=== PATIENT | female | born 1975 | race Two or more races ===

== ENCOUNTER 2017-07-24 08:19 | Inpatient (IN) | payer OTHER ==
[2017-07-24 09:40] VITALS: BMI 35.6
--- NOTE | 2017-07-24 09:50 | HP ---
CIWA Score - CIWA Score Nausea/Vomitin-Int. Nausea w/Dry Heave Muscle Tremors: 4-Moderate,w/Arms Extend Anxiety: 4-Mod. Anxious/Guarded Agitation: 1-Slight > Activity Paroxysmal Sweats: 1-Minimal Palms Moist Orientation: 0-Oriented Tacttile Disturbances: 1-Very Mild Itch/Numbness Auditory Disturbances: 2-Mild Harshness/Frighten Visual Disturbances: 2-Mild Sensitivity Headache: 3-Moderate CIWA-Ar Total Score: 22 Admission ROS S - HPI Chief Complaint: I need a change, I don't want to keep using Allergies/Adverse Reactions: Allergies Allergy/AdvReac Type Severity Reaction Status Date / Time doxycycline Allergy Severe Hives Verified 07/24/17 09:30 History of Present Illness: 41 yo woman here for detox from alcohol - also using cocaine, first time ever in a detox. No seizures. Also noted to be deaf in left ear, arthritis, back pain. Has abdominal wound - states it was an abscess that opened and now with draining, slowly healing wound for about a week or two. Exam Limitations: Clinical Condition - Ebola screening Have you traveled outside of the country in the last 21 days: No Have you had contact with anyone from an Ebola affected area: No Have you been sick,other than usual withdrawal symptoms: No Do you have a fever: No - Review of Systems Constitutional: Chills, Loss of Appetite, Malaise, Changes in sleep, Weakness EENT: reports: Other (deaf left ear) Respiratory: reports: Cough Cardiac: reports: No Symptoms Reported GI: reports: Nausea, Poor Appetite, Vomiting, Abdominal cramping Musculoskeletal: reports: Back Pain, Muscle Pain, Other (hand pain - carpal tunnel) Integumentary: reports: No Symptoms Reported Neuro: reports: Headache, Numbness Endocrine: reports: No Symptoms Reported Hematology: reports: No Symptoms Reported Psychiatric: reports: Judgement Intact, Mood/Affect Appropiate, Orientated x3, Anxious Other Systems: Reviewed and Negative Patient History - Patient Medical History Hx Asthma: No Hx Chronic Obstructive Pulmonary Disease (COPD): No Hx Cancer: No Hx Cardiac Disorders: No Hx Congestive Heart Failure: No Hx Hypertension: No Hx Hypercholesterolemia: No Hx Pacemaker: No HX Cerebrovascular Accident: No Hx Seizures: No Hx Dementia: No Hx Diabetes: No Hx Gastrointestinal Disorders: No Hx Liver Disease: No Hx Genitourinary Disorders: No Hx Sexually Transmitted Disorders: No Hx Renal Disease (ESRD): No Hx Thyroid Disease: No Hx Human Immunodeficiency Virus (HIV): No Hx Hepatitis C: No Hx Depression: Yes (never hospitalized) Hx Suicide Attempt: No Hx Bipolar Disorder: No Hx Schizophrenia: No Other Medical History: back pain, deaf left ear, carpal tunnel - Patient Surgical History Past Surgical History: No Hx Neurologic Surgery: No Hx Cataract Extraction: No Hx Cardiac Surgery: No Hx Lung Surgery: No Hx Breast Surgery: No Hx Breast Biopsy: No Hx Abdominal Surgery: No Hx Appendectomy: No Hx Cholecystectomy: No Hx Genitourinary Surgery: No Hx Section: No Hx Orthopedic Surgery: No Other Surgical History: D&C- 02/2017 Anesthesia Reaction: No - PPD History Previous Implant?: Yes Documented Results: Negative w/o proof PPD to be Administered?: Yes - Reproductive History Patient is a Female of Child Bearing Age (11 -55 yrs old): No - Smoking Cessation Smoking history: Current every day smoker Have you smoked in the past 12 months: Yes Aproximately how many cigarettes per day: 40 Hx Chewing Tobacco Use: No Initiated information on smoking cessation: Yes 'Breaking Loose' booklet given: 07/24/17 (give on floor) - Substances Abused Alcohol Route: Oral Frequency: Daily Amount used: LIQUOR- 6 PINTS, BEER- 3 SIX PACK Age of first use: 17 Date of Last Use: 07/23/17 Crack Route: Smoking Frequency: Daily Amount used: 40 BAGS Age of first use: 37 Date of Last Use: 07/23/17 Family Disease History - Family Disease History Family Disease History: Diabetes: Son (one - diabetes), Respiratory: Mother ( - drugs ' thrown out window'), Other: Father (no contact, etoh/drugs, incarcerated), Mother, Brother (one - arthritis - pot smoker), Sister (lupus - thyroid - etoh/pot), Son, Daughter (three - healthy) Admission Physical Exam BHS - Vital Signs Vital Signs: Vital Signs - 24 hr 07/24/17 09:37 Temperature 96.4 F L Pulse Rate 64 Respiratory 18 Rate Blood Pressure 128/62 - Physical General Appearance: Yes: Nourished, Appropriately Dressed, Moderate Distress, Anxious HEENTM: Yes: EOMI, Normal ENT Inspection, Normocephalic, Normal Voice, Pharynx Normal, Other (deaf left ear) Respiratory: Yes: Normal Breath Sounds, No Respiratory Distress Neck: Yes: No masses,lesions,Nodules, Supple Breast: Yes: Breast Exam Deferred Cardiology: Yes: Regular Rhythm, Bradycardia Abdominal: Yes: Flat, Soft, Other (right lower quadrent quarter size open wound with creamy greenish exudate - stage II) Genitourinary: Yes: Frequency Back: Yes: Decreased Range of Motion, Muscle Spasm Musculoskeletal: Yes: full range of Motion, Gait Steady Extremities: Yes: Normal Inspection, Normal Range of Motion, Non-Tender, Pedal Edema (mild ankle edema (states due to 'running around' and no rest) Neurological: Yes: Fully Oriented, Alert, Normal Mood/Affect, Normal Response Integumentary: Yes: Normal Color, Warm Lymphatic: Yes: Within Normal Limits - Diagnostic (1) Alcohol dependence with uncomplicated withdrawal Current Visit: Yes Status: Acute (2) Cocaine dependence Current Visit: Yes Status: Acute Qualifiers: Substance use status: uncomplicated Qualified Code(s): F14.20 - Cocaine dependence, uncomplicated (3) Chronic low back pain with right-sided sciatica Current Visit: Yes Status: Acute Qualifiers: Back pain laterality: bilateral Qualified Code(s): M54.41 - Lumbago with sciatica, right side; G89.29 - Other chronic pain; G89.29 - Other chronic pain (4) Deafness in left ear Current Visit: Yes Status: Acute Comment: since age [age] (5) Carpal tunnel syndrome of right wrist Current Visit: Yes Status: Acute (6) Nicotine dependence Current Visit: Yes Status: Acute Qualifiers: Nicotine product type: cigarettes Substance use status: uncomplicated Qualified Code(s): F17.210 - Nicotine dependence, cigarettes, uncomplicated Cleared for Admission S - Detox or Rehab [facility] Level of Care: Medically Managed Detox Regimen/Protocol: Librium [facility] Breath Alcohol Content Breath Alcohol Content: 0 Urine Pregancy Test - Result Urine Test Results: Negative- NO Line Present Urine Drug Screen - Results Drug Screen Negative: No Urine Drug Screen Results: CHARLINE-Cocaine
[2017-07-24] MEDS ORDERED: guaiFENesin/D-METHORPHAN HB 10 ML UNIT-DOSE CUPS PO PRN (10:11)
[2017-07-24] MEDS ORDERED: MENTHOL/PHENOL 1 EACH UD MM PRN (10:11)
[2017-07-24] MEDS ORDERED: P-EPHED 60MG/TRIPROLIDI 2.5MG TABLET PO PRN (10:11)
[2017-07-24] MEDS ORDERED: MAGNESIUM CITRATE 300 ML BOTTLE PO PRN (10:11)
[2017-07-24] MEDS ORDERED: IBUPROFEN 400 MG TABLET (FP) PO PRN (10:11)
[2017-07-24] MEDS ORDERED: MAGNESIUM HYDROX 2400MG/30ML ORAL SUSPENSION 30 ML CUP PO PRN (10:11)
[2017-07-24] MEDS ORDERED: ACETAMINOPHEN 325 MG TABLET (FP) PO PRN (10:11)
[2017-07-24] MEDS ORDERED: NICOTINE POLACRILEX 4 MG GUM BUC PRN (10:11)
[2017-07-24] MEDS ORDERED: chlordiazePOXIDE HCL 25 MG CAPSULE PO PRN (10:11)
[2017-07-24] MEDS ORDERED: ZINC OXIDE/PANTHENOL/VITAMIN E 56 GM TUBE TP SCH (10:30)
[2017-07-24] MEDS ORDERED: chlordiazePOXIDE HCL 25 MG CAPSULE PO ONE (11:00)
[2017-07-24] MEDS: METHOCARBAMOL 500 MG TABLET PO SCH ×2 (12:36→22:25)
[2017-07-24] MEDS: ZINC OXIDE 20% TOPICAL OINTMENT 30 GM TUBE TP SCH (14:00)
[2017-07-24] MEDS: chlordiazePOXIDE HCL 25 MG CAPSULE PO SCH ×2 (17:05→22:25)
[2017-07-24 19:48] LABS: URINE APPEARANCE CLOUDY; URINE BILIRUBIN NEGATIVE (NEGATIVE); URINE BLOOD NEGATIVE (NEGATIVE); URINE COLOR YELLOW; URINE GLUCOSE (UA) NEGATIVE (NEGATIVE); URINE KETONE NEGATIVE (NEGATIVE); URINE NITRITE NEGATIVE (NEGATIVE); URINE PROTEIN NEGATIVE (NEGATIVE); URINE UROBILINOGEN NEGATIVE mg/dL (0.2-1.0)
[2017-07-24 21:38] LABS: URINE LEUK ESTERASE 1+ (NEGATIVE)
[2017-07-24 22:20] LABS: URINE BACTERIA MODERATE /hpf (NEGATIVE)
[2017-07-24] MEDS: THIAMINE HCL 100 MG TABLET (FP) PO SCH (22:25)
[2017-07-24] MEDS: hydrOXYzine PAMOATE 50 MG CAPSULE (FP) PO PRN (22:26)
[2017-07-25] MEDS: chlordiazePOXIDE HCL 25 MG CAPSULE PO SCH ×4 (06:02→22:11)
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
[2017-07-25] MEDS: METHOCARBAMOL 500 MG TABLET PO SCH ×2 (10:23→22:12)
[2017-07-25] MEDS: PRENATAL VITAMINS W/ FOLIC ACID TABLET (FP) PO SCH (10:23)
[2017-07-25 10:31] LABS: MCH 31.2 pg (25.7-33.7); MEAN CELL VOLUME 94.5 fl (80-96); MEAN PLT VOLUME 7.8 fl (7.5-11.1); PLATELET COUNT 337 K/MM3 (134-434); RDW 13.9 % (11.6-15.6); WHITE BLOOD COUNT 8.2 K/mm3 (4.0-10.0)
[2017-07-25] MEDS: IBUPROFEN 400 MG TABLET (FP) PO PRN (10:38)
[2017-07-25] MEDS: GABAPENTIN 100 MG CAPSULE (FP) PO SCH ×2 (10:38→22:11)
[2017-07-25 10:41] LABS: ANION GAP 9 (8-16); CO2 25 mmol/L (21-32); CREATININE 0.9 mg/dL (0.55-1.02); GLUCOSE,RANDOM 138 mg/dL (74-106); SGOT/AST 14 U/L (15-37); SGPT/ALT 25 U/L (12-78)
[2017-07-25 10:42] LABS: ALK PHOS 67 U/L (45-117); BILIRUBIN,TOTAL 0.5 mg/dL (0.2-1.0)
[2017-07-25 11:00] LABS: HIV 1 & 2 AB NEGATIVE; HIV 1 AGp24 NEGATIVE
--- NOTE | 2017-07-25 11:00 | PN ---
S CIWA - CIWA Score Nausea/Vomitin-Mild Nausea/No Vomiting Muscle Tremors: 4-Moderate,w/Arms Extend Anxiety: 4-Mod. Anxious/Guarded Agitation: 3 Paroxysmal Sweats: 3 Orientation: 0-Oriented Tacttile Disturbances: 0-None Auditory Disturbances: 0-None Visual Disturbances: 0-None Headache: 0-None Present CIWA-Ar Total Score: 15 BHS Progress Note (SOAP) Subjective: Anxiety,tremors,sweating,interrupted sleep,restless Objective: 07/25/17 10:56 Vital Signs - 8 hr 07/25/17 07/25/17 07/25/17 03:30 06:00 09:42 Temperature 98.1 F 97.2 F L Pulse Rate 74 78 Respiratory 18 18 18 Rate Blood Pressure 108/70 94/57 Laboratory Tests 07/24/17 07/25/17 07/25/17 16:07 07:15 07:15 WBC 8.2 RBC 3.95 Hgb 12.3 Hct 37.3 MCV 94.5 MCH 31.2 MCHC 33.0 RDW 13.9 Plt Count 337 MPV 7.8 Sodium 141 Potassium 4.1 Chloride 107 Carbon Dioxide 25 Anion Gap 9 BUN 11 Creatinine 0.9 Creat Clearance w eGFR > 60 Random Glucose 138 H Calcium 8.0 L Total Bilirubin 0.5 AST 14 L ALT 25 Alkaline Phosphatase 67 Total Protein 6.0 L Albumin 3.0 L Urine Color Yellow Urine Appearance Cloudy Urine pH 6.0 Ur Specific [place] 1.019 Urine Protein Negative Urine Glucose (UA) Negative Urine Ketones Negative Urine Blood Negative Urine Nitrite Negative Urine Bilirubin Negative Urine Urobilinogen Negative Ur Leukocyte Esterase 1+ H Urine RBC 2-5 Urine WBC 5-10 Ur Epithelial Cells Few Urine Bacteria Moderate labs noted Assessment: 07/25/17 10:56 Withdrawal sx. Plan: Continue Detox
[2017-07-25] MEDS: ZINC OXIDE 20% TOPICAL OINTMENT 30 GM TUBE TP SCH (12:41)
--- NOTE | 2017-07-25 13:04 | PN ---
BHS Progress Note Note: Pt. has a draining abdominal abscess, she also reports hx. of Lupus which causes joint pains. P : Augmentin 875mg bid
[2017-07-25] MEDS ORDERED: AMOX TR/POT CLAV 875MG/125MG TABLETS (FP) PO ONE (13:15)
[2017-07-25] MEDS: AMOX TR/POT CLAV 875MG/125MG TABLETS (FP) PO SCH (17:04)
[2017-07-25] MEDS ORDERED: TRIMETHOBENZAMIDE HCL 200MG/2ML INJ IM ONE (21:35)
[2017-07-25] MEDS: ZOLPIDEM TARTRATE 10 MG TABLET (PARK CARE ONLY) PO PRN (22:11)
[2017-07-25] MEDS: THIAMINE HCL 100 MG TABLET (FP) PO SCH (22:11)
[2017-07-26] MEDS: hydrOXYzine PAMOATE 50 MG CAPSULE (FP) PO PRN ×2 (03:15→14:38)
[2017-07-26] MEDS: chlordiazePOXIDE HCL 25 MG CAPSULE PO SCH ×2 (05:25→09:59)
--- NOTE | 2017-07-26 09:41 | EKG ---
Test Reason : Blood Pressure : / mmHG Vent. Rate : 050 BPM Atrial Rate : 050 BPM P-R Int : 144 ms QRS Dur : 100 ms QT Int : 474 ms P-R-T Axes : 068 -10 027 degrees QTc Int : 432 ms SINUS BRADYCARDIA OTHERWISE NORMAL ECG NO PREVIOUS ECGS AVAILABLE Confirmed by LEVI MENDES MD ([id number]) on 07/26/2017 9:41:03 AM Referred By: Confirmed By:LEVI MENDES MD
[2017-07-26] MEDS: GABAPENTIN 100 MG CAPSULE (FP) PO SCH ×2 (09:57→22:20)
[2017-07-26] MEDS: AMOX TR/POT CLAV 875MG/125MG TABLETS (FP) PO SCH ×2 (09:57→16:43)
[2017-07-26] MEDS: METHOCARBAMOL 500 MG TABLET PO SCH ×2 (09:57→22:21)
[2017-07-26] MEDS: PRENATAL VITAMINS W/ FOLIC ACID TABLET (FP) PO SCH (09:58)
--- NOTE | 2017-07-26 10:51 | PN ---
[facility] CIWA - CIWA Score Nausea/Vomitin-No Nausea/No Vomiting Muscle Tremors: 4-Moderate,w/Arms Extend Anxiety: 3 Agitation: 3 Paroxysmal Sweats: 3 Orientation: 0-Oriented Tacttile Disturbances: 0-None Auditory Disturbances: 0-None Visual Disturbances: 0-None Headache: 1-Very Mild CIWA-Ar Total Score: 14 S Progress Note (SOAP) Subjective: sweats shakes interrupted sleep agitation nausea/vomiting diarrhea Objective: 07/26/17 10:49 Vital Signs Temperature 97.5 F L 07/26/17 06:23 Pulse Rate 75 07/26/17 06:23 Respiratory Rate 18 07/26/17 06:23 Blood Pressure 115/68 07/26/17 06:23 O2 Sat by Pulse Oximetry (%) Laboratory Tests 07/24/17 07/25/17 07/25/17 16:07 07:15 07:15 WBC 8.2 RBC 3.95 Hgb 12.3 Hct 37.3 MCV 94.5 MCH 31.2 MCHC 33.0 RDW 13.9 Plt Count 337 MPV 7.8 Sodium Potassium Chloride Carbon Dioxide Anion Gap BUN Creatinine Creat Clearance w eGFR Random Glucose Calcium Total Bilirubin AST ALT Alkaline Phosphatase Total Protein Albumin Urine Color Yellow Urine Appearance Cloudy Urine pH 6.0 Ur Specific [place] 1.019 Urine Protein Negative Urine Glucose (UA) Negative Urine Ketones Negative Urine Blood Negative Urine Nitrite Negative Urine Bilirubin Negative Urine Urobilinogen Negative Ur Leukocyte Esterase 1+ H Urine RBC 2-5 Urine WBC 5-10 Ur Epithelial Cells Few Urine Bacteria Moderate RPR Titer HIV 1&2 Antibody Screen Negative HIV P24 Antigen Negative 07/25/17 07/25/17 07:15 07:15 WBC RBC Hgb Hct MCV MCH MCHC RDW Plt Count MPV Sodium 141 Potassium 4.1 Chloride 107 Carbon Dioxide 25 Anion Gap 9 BUN 11 Creatinine 0.9 Creat Clearance w eGFR > 60 Random Glucose 138 H Calcium 8.0 L Total Bilirubin 0.5 AST 14 L ALT 25 Alkaline Phosphatase 67 Total Protein 6.0 L Albumin 3.0 L Urine Color Urine Appearance Urine pH Ur Specific [place] Urine Protein Urine Glucose (UA) Urine Ketones Urine Blood Urine Nitrite Urine Bilirubin Urine Urobilinogen Ur Leukocyte Esterase Urine RBC Urine WBC Ur Epithelial Cells Urine Bacteria RPR Titer Nonreactive HIV 1&2 Antibody Screen HIV P24 Antigen aaox3 ambulating no acute distress Assessment: 07/26/17 10:50 withdrawal sx Plan: continue detox increase fluids immodium prn tigan po prn
[2017-07-26] MEDS: ZINC OXIDE 20% TOPICAL OINTMENT 30 GM TUBE TP SCH (12:11)
[2017-07-26] MEDS: IBUPROFEN 400 MG TABLET (FP) PO PRN ×2 (14:42→22:45)
[2017-07-26] MEDS: chlordiazePOXIDE 5 MG CAPSULE PO SCH ×2 (16:43→22:21)
[2017-07-26] MEDS: MAG HYDROX/AL HYDROX/SIMETH 30 ML UNIT-DOSE CUP PO PRN (17:13)
[2017-07-26] MEDS: THIAMINE HCL 100 MG TABLET (FP) PO SCH (22:20)
[2017-07-26] MEDS: QUEtiapine FUMARATE 100 MG TABLET (FP) PO SCH (22:21)
[2017-07-26] MEDS: ZOLPIDEM TARTRATE 10 MG TABLET (PARK CARE ONLY) PO PRN (22:21)
[2017-07-26] MEDS: LOPERAMIDE HCL 2 MG CAPSULE PO PRN (22:22)
[2017-07-26] MEDS: TRIMETHOBENZAMIDE HCL 300 MG CAPSULE PO PRN (23:53)
[2017-07-27] MEDS: chlordiazePOXIDE 5 MG CAPSULE PO SCH ×2 (05:26→10:31)
[2017-07-27] MEDS: AMOX TR/POT CLAV 875MG/125MG TABLETS (FP) PO SCH ×2 (09:22→17:30)
[2017-07-27] MEDS: LOPERAMIDE HCL 2 MG CAPSULE PO PRN ×2 (09:22→22:24)
[2017-07-27] MEDS: IBUPROFEN 400 MG TABLET (FP) PO PRN ×2 (09:23→22:22)
--- NOTE | 2017-07-27 09:34 | PN ---
BHS Progress Note (SOAP) Subjective: diarrhea sweats nausea Objective: 07/27/17 09:33 Vital Signs Temperature 97.3 F L 07/27/17 06:37 Pulse Rate 73 07/27/17 06:37 Respiratory Rate 18 07/27/17 06:37 Blood Pressure 101/50 07/27/17 06:37 O2 Sat by Pulse Oximetry (%) aaox3 ambulating no acute distress Assessment: 07/27/17 09:34 mild withdrawal sx Plan: continue detox tigan prn immodium prn d/c in am
[2017-07-27] MEDS: METHOCARBAMOL 500 MG TABLET PO SCH ×2 (10:31→22:28)
[2017-07-27] MEDS: GABAPENTIN 100 MG CAPSULE (FP) PO SCH ×2 (10:31→22:22)
[2017-07-27] MEDS: PRENATAL VITAMINS W/ FOLIC ACID TABLET (FP) PO SCH (10:31)
[2017-07-27] MEDS: MAG HYDROX/AL HYDROX/SIMETH 30 ML UNIT-DOSE CUP PO PRN (11:05)
[2017-07-27] MEDS: TRIMETHOBENZAMIDE HCL 300 MG CAPSULE PO PRN ×2 (12:01→17:29)
[2017-07-27] MEDS: ZINC OXIDE 20% TOPICAL OINTMENT 30 GM TUBE TP SCH (12:39)
[2017-07-27] MEDS: hydrOXYzine PAMOATE 50 MG CAPSULE (FP) PO PRN ×3 (14:35→22:22)
[2017-07-27] MEDS: chlordiazePOXIDE HCL 10 MG CAPSULE PO SCH ×2 (17:30→22:22)
[2017-07-27] MEDS: ZOLPIDEM TARTRATE 10 MG TABLET (PARK CARE ONLY) PO PRN (22:22)
[2017-07-27] MEDS: QUEtiapine FUMARATE 100 MG TABLET (FP) PO SCH (22:22)
[2017-07-27] MEDS: THIAMINE HCL 100 MG TABLET (FP) PO SCH (22:22)
[2017-07-28] MEDS: chlordiazePOXIDE HCL 10 MG CAPSULE PO SCH (05:44)
[2017-07-28] MEDS: hydrOXYzine PAMOATE 50 MG CAPSULE (FP) PO PRN ×2 (05:50→10:12)
[2017-07-28] MEDS: MAG HYDROX/AL HYDROX/SIMETH 30 ML UNIT-DOSE CUP PO PRN (06:29)
[2017-07-28] MEDS: AMOX TR/POT CLAV 875MG/125MG TABLETS (FP) PO SCH (07:36)
--- NOTE | 2017-07-28 08:33 | DS ---
[facility] Detox Discharge Summary Admission Date: 07/24/17 Discharge Date: 07/28/17 - History Present History: Alcohol Dependence, Cocaine Dependence Additional Comments: ARC LNG TERM FOR AFTERCARE Pertinent Past History: ANXIETY, DEPRESSION , INSOMNIA, NICOTIEN DEPENDENCE - Physical Exam Results Vital Signs: Vital Signs Temperature 97.9 F 07/28/17 06:34 Pulse Rate 70 07/28/17 06:34 Respiratory Rate 18 07/28/17 06:34 Blood Pressure 111/71 07/28/17 06:34 O2 Sat by Pulse Oximetry (%) Vital Signs - 8 hr 07/28/17 07/28/17 03:30 06:34 Temperature 97.9 F Pulse Rate 70 Respiratory 18 18 Rate Blood Pressure 111/71 Laboratory Tests 07/24/17 07/25/17 07/25/17 16:07 07:15 07:15 WBC 8.2 RBC 3.95 Hgb 12.3 Hct 37.3 MCV 94.5 MCH 31.2 MCHC 33.0 RDW 13.9 Plt Count 337 MPV 7.8 Sodium Potassium Chloride Carbon Dioxide Anion Gap BUN Creatinine Creat Clearance w eGFR Random Glucose Calcium Total Bilirubin AST ALT Alkaline Phosphatase Total Protein Albumin Urine Color Yellow Urine Appearance Cloudy Urine pH 6.0 Ur Specific [place] 1.019 Urine Protein Negative Urine Glucose (UA) Negative Urine Ketones Negative Urine Blood Negative Urine Nitrite Negative Urine Bilirubin Negative Urine Urobilinogen Negative Ur Leukocyte Esterase 1+ H Urine RBC 2-5 Urine WBC 5-10 Ur Epithelial Cells Few Urine Bacteria Moderate RPR Titer HIV 1&2 Antibody Screen Negative HIV P24 Antigen Negative 07/25/17 07/25/17 07:15 07:15 WBC RBC Hgb Hct MCV MCH MCHC RDW Plt Count MPV Sodium 141 Potassium 4.1 Chloride 107 Carbon Dioxide 25 Anion Gap 9 BUN 11 Creatinine 0.9 Creat Clearance w eGFR > 60 Random Glucose 138 H Calcium 8.0 L Total Bilirubin 0.5 AST 14 L ALT 25 Alkaline Phosphatase 67 Total Protein 6.0 L Albumin 3.0 L Urine Color Urine Appearance Urine pH Ur Specific [place] Urine Protein Urine Glucose (UA) Urine Ketones Urine Blood Urine Nitrite Urine Bilirubin Urine Urobilinogen Ur Leukocyte Esterase Urine RBC Urine WBC Ur Epithelial Cells Urine Bacteria RPR Titer Nonreactive HIV 1&2 Antibody Screen HIV P24 Antigen Pertinent Admission Physical Exam Findings: WITHDRAWAL SX - Treatment Hospital Course: Detox Protocol Followed, Detoxed Safely, Responded well, Discharged Condition Good, Rehab Referral Accepted - Medication Discharge Medications: Ambulatory Orders Quetiapine Fumarate [Seroquel] 100 mg PO HS #30 tablet 07/26/17 - Diagnosis (1) Alcohol dependence with uncomplicated withdrawal Current Visit: Yes Status: Acute (2) Cocaine dependence Current Visit: Yes Status: Acute Qualifiers: Substance use status: uncomplicated Qualified Code(s): F14.20 - Cocaine dependence, uncomplicated (3) Substance-induced anxiety disorder Current Visit: Yes Status: Acute (4) Substance-induced sleep disorder Current Visit: Yes Status: Acute (5) Carpal tunnel syndrome of right wrist Current Visit: Yes Status: Chronic (6) Chronic low back pain with right-sided sciatica Current Visit: Yes Status: Chronic Qualifiers: Back pain laterality: bilateral Qualified Code(s): M54.41 - Lumbago with sciatica, right side; G89.29 - Other chronic pain; G89.29 - Other chronic pain (7) Deafness in left ear Current Visit: Yes Status: Chronic - AMA Did Patient Leave Against Medical Advice: No
[2017-07-28] MEDS: METHOCARBAMOL 500 MG TABLET PO SCH (10:10)
[2017-07-28] MEDS: GABAPENTIN 100 MG CAPSULE (FP) PO SCH (10:11)
[2017-07-28] MEDS: PRENATAL VITAMINS W/ FOLIC ACID TABLET (FP) PO SCH (10:11)
[2017-07-28 10:24] VITALS: BP 116/71; PULSE 89; TEMP 97.5
== END 2017-07-28 10:36 | disposition home or self-care (01) | DRG 775 ==
LOC: YASAS 08:19 → Y6N 10:40
PROVIDERS: ADMIT Internal Medicine; ATTEND Internal Medicine
PROC: HZ2ZZZZ Detoxification Services for Substance Abuse Treatment (ICD-10-PCS; principal; 2017-07-24)
DX: F10.230 Alcohol dependence with withdrawal, uncomplicated (principal); F19.280 Other psychoactive substance dependence with psychoactive substance-induced anxiety disorder; F19.282 Other psychoactive substance dependence with psychoactive substance-induced sleep disorder; F43.10 Post-traumatic stress disorder, unspecified; G56.01 Carpal tunnel syndrome, right upper limb; M54.41 Lumbago with sciatica, right side; H91.92 Unspecified hearing loss, left ear; Z59.0 Homelessness
CPT/HCPCS: 36415; 80053; 81003; 81015; 85027; 86593; 87389; 93005; 93010

== ENCOUNTER 2021-01-27 09:30 | Inpatient (IN) | payer OTHER ==
[2021-01-27 10:33] VITALS: BMI 38.6
[2021-01-27] MEDS ORDERED: NICOTINE POLACRILEX 2 MG GUM BUC PRN (11:02)
[2021-01-27] MEDS ORDERED: ACETAMINOPHEN 325 MG TABLET (FP) PO PRN ×2 (11:02)
[2021-01-27] MEDS ORDERED: MAGNESIUM HYDROX 2400MG/30ML ORAL SUSPENSION 30 ML CUP PO PRN (11:02)
[2021-01-27] MEDS ORDERED: MENTHOL/PHENOL 1 EACH UD MM PRN (11:02)
[2021-01-27] MEDS ORDERED: MAGNESIUM CITRATE 300 ML BOTTLE PO PRN (11:02)
[2021-01-27] MEDS: LORazepam 1 MG TABLET PO PRN (13:16)
[2021-01-27] MEDS: hydrOXYzine PAMOATE 25 MG CAPSULE (FP) PO SCH ×3 (13:17→22:36)
[2021-01-27] MEDS: ASPIRIN 81 MG CHEWABLE TABLETS PO SCH (13:17)
[2021-01-27] MEDS: NICOTINE 21 MG/24 HOURS TOPICAL PATCH TD SCH (13:18)
[2021-01-27] MEDS: BISMUTH SUBSALICYLATE 524 MG/30 ML PO PRN ×2 (13:18→22:38)
[2021-01-27 13:41] LABS: HEMATOCRIT 38.5 % (32.4-45.2); HEMOGLOBIN 12.9 GM/dL (10.7-15.3); MCH 32.7 pg (25.7-33.7); MCHC 33.3 g/dl (32.0-36.0); MEAN PLT VOLUME 8.3 fl (7.5-11.1); PLATELET COUNT 426 K/MM3 (134-434); RBC 3.93 M/mm3 (3.60-5.2); RDW 13.9 % (11.6-15.6); WHITE BLOOD COUNT 7.3 K/mm3 (4.0-10.0)
[2021-01-27 13:48] LABS: CALCIUM 8.6 mg/dL (8.5-10.1)
[2021-01-27 13:49] LABS: ALBUMIN 3.4 g/dl (3.4-5.0); BLOOD UREA NITROGEN 14.3 mg/dL (7-18)
[2021-01-27 13:52] LABS: CREATININE 0.7 mg/dL (0.55-1.3)
[2021-01-27 13:54] LABS: BILIRUBIN,TOTAL 0.4 mg/dL (0.2-1)
[2021-01-27 14:42] LABS: HIV INTERPRETATION NEGATIVE (NEGATIVE)
[2021-01-27] MEDS: predniSONE 10 MG TABLET (UD) PO SCH (14:57)
[2021-01-27] MEDS: TOPIRAMATE 100 MG TABLET PO SCH (14:57)
[2021-01-27] MEDS: PRENATAL VITAMINS W/ FOLIC ACID TABLET (FP) PO SCH (15:07)
[2021-01-27] MEDS: LORazepam 2 MG TABLET PO SCH ×2 (17:50→22:36)
[2021-01-27] MEDS: PANTOPRAZOLE 20 MG TABLET PO SCH (17:50)
[2021-01-27] MEDS: MELATONIN 5 MG TABLETS PO SCH (22:36)
[2021-01-27] MEDS: THIAMINE HCL 100 MG TABLET (FP) PO SCH (22:36)
[2021-01-27] MEDS: ASPIRIN 325 MG ENTERIC COATED TABLET (FP) PO SCH (23:30)
[2021-01-28] MEDS: hydrOXYzine PAMOATE 25 MG CAPSULE (FP) PO SCH (07:27)
[2021-01-28] MEDS: LORazepam 2 MG TABLET PO SCH ×4 (07:27→22:09)
[2021-01-28] MEDS: PANTOPRAZOLE 20 MG TABLET PO SCH (10:31)
[2021-01-28] MEDS: TOPIRAMATE 100 MG TABLET PO SCH (10:31)
[2021-01-28] MEDS: predniSONE 10 MG TABLET (UD) PO SCH (10:31)
[2021-01-28] MEDS: hydrOXYzine PAMOATE 25 MG CAPSULE (FP) PO PRN (10:31)
[2021-01-28] MEDS: PRENATAL VITAMINS W/ FOLIC ACID TABLET (FP) PO SCH (10:33)
[2021-01-28] MEDS: NICOTINE 21 MG/24 HOURS TOPICAL PATCH TD SCH (10:33)
[2021-01-28] MEDS: ASPIRIN 81 MG CHEWABLE TABLETS PO SCH (10:34)
[2021-01-28] MEDS: BISMUTH SUBSALICYLATE 524 MG/30 ML PO PRN (12:02)
[2021-01-28] MEDS: ONDANSETRON *ODT* 4 MG TABLET SL PRN ×2 (12:02→22:11)
[2021-01-28] MEDS: IBUPROFEN 400 MG TABLET (FP) PO PRN (18:06)
[2021-01-28] MEDS: MAG HYDROX/AL HYDROX/SIMETH 30 ML UNIT-DOSE CUP PO PRN (20:27)
[2021-01-28] MEDS: ASPIRIN 325 MG ENTERIC COATED TABLET (FP) PO SCH (22:09)
[2021-01-28] MEDS: MELATONIN 5 MG TABLETS PO SCH (22:09)
[2021-01-28] MEDS: THIAMINE HCL 100 MG TABLET (FP) PO SCH (22:09)
[2021-01-29] MEDS: LORazepam 1 MG TABLET PO SCH ×4 (06:08→22:22)
[2021-01-29] MEDS: ONDANSETRON *ODT* 4 MG TABLET SL PRN ×2 (06:15→22:24)
[2021-01-29] MEDS: TOPIRAMATE 100 MG TABLET PO SCH (10:01)
[2021-01-29] MEDS: NICOTINE 21 MG/24 HOURS TOPICAL PATCH TD SCH (10:01)
[2021-01-29] MEDS: predniSONE 10 MG TABLET (UD) PO SCH (10:01)
[2021-01-29] MEDS: PRENATAL VITAMINS W/ FOLIC ACID TABLET (FP) PO SCH (10:01)
[2021-01-29] MEDS: ASPIRIN 81 MG CHEWABLE TABLETS PO SCH (10:01)
[2021-01-29] MEDS: hydrOXYzine PAMOATE 25 MG CAPSULE (FP) PO PRN ×2 (10:02→17:59)
[2021-01-29] MEDS: PANTOPRAZOLE 20 MG TABLET PO SCH (10:04)
[2021-01-29] MEDS: MAG HYDROX/AL HYDROX/SIMETH 30 ML UNIT-DOSE CUP PO PRN (15:01)
[2021-01-29] MEDS: LORazepam 1 MG TABLET PO PRN (19:49)
[2021-01-29] MEDS: THIAMINE HCL 100 MG TABLET (FP) PO SCH (22:22)
[2021-01-29] MEDS: MELATONIN 5 MG TABLETS PO SCH (22:22)
[2021-01-29] MEDS: ASPIRIN 325 MG ENTERIC COATED TABLET (FP) PO SCH (22:23)
[2021-01-30] MEDS ORDERED: LORazepam 0.5 MG TABLET PO PRN
[2021-01-30] MEDS: LORazepam 0.5 MG TABLET PO SCH ×4 (04:25→22:22)
[2021-01-30] MEDS: hydrOXYzine PAMOATE 25 MG CAPSULE (FP) PO PRN ×3 (04:28→22:23)
[2021-01-30 10:07] LABS: SARS-CoV-2 NAA Not Detected (Not Detected)
[2021-01-30] MEDS: PANTOPRAZOLE 20 MG TABLET PO SCH (10:44)
[2021-01-30] MEDS: TOPIRAMATE 100 MG TABLET PO SCH (10:44)
[2021-01-30] MEDS: NICOTINE 21 MG/24 HOURS TOPICAL PATCH TD SCH (10:44)
[2021-01-30] MEDS: PRENATAL VITAMINS W/ FOLIC ACID TABLET (FP) PO SCH (10:44)
[2021-01-30] MEDS: FLUOCINONIDE 0.05% CREAM (15 GM TUBE) TP SCH ×4 (10:45→23:19)
[2021-01-30] MEDS: ASPIRIN 81 MG CHEWABLE TABLETS PO SCH (10:48)
[2021-01-30] MEDS: predniSONE 10 MG TABLET (UD) PO SCH (11:58)
[2021-01-30] MEDS: ASPIRIN 325 MG ENTERIC COATED TABLET (FP) PO SCH (22:21)
[2021-01-30] MEDS: THIAMINE HCL 100 MG TABLET (FP) PO SCH (22:21)
[2021-01-30] MEDS: MELATONIN 5 MG TABLETS PO SCH (22:22)
[2021-01-30] MEDS: METHOCARBAMOL 500 MG TABLET PO PRN (22:23)
[2021-01-31] MEDS: hydrOXYzine PAMOATE 25 MG CAPSULE (FP) PO PRN (03:12)
[2021-01-31] MEDS ORDERED: LORazepam 0.5 MG TABLET PO ONE (05:00)
[2021-01-31] MEDS: IBUPROFEN 400 MG TABLET (FP) PO PRN (06:19)
[2021-01-31] MEDS: METHOCARBAMOL 500 MG TABLET PO PRN (06:20)
[2021-01-31 08:56] VITALS: BP 105/67; PULSE 76; TEMP 97.3
[2021-01-31] MEDS: FLUOCINONIDE 0.05% CREAM (15 GM TUBE) TP SCH (10:34)
[2021-01-31] MEDS: TOPIRAMATE 100 MG TABLET PO SCH (10:35)
[2021-01-31] MEDS: predniSONE 10 MG TABLET (UD) PO SCH (10:35)
[2021-01-31] MEDS: NICOTINE 21 MG/24 HOURS TOPICAL PATCH TD SCH (10:35)
[2021-01-31] MEDS: ASPIRIN 81 MG CHEWABLE TABLETS PO SCH (10:35)
[2021-01-31] MEDS: PANTOPRAZOLE 20 MG TABLET PO SCH (10:35)
[2021-01-31] MEDS: PRENATAL VITAMINS W/ FOLIC ACID TABLET (FP) PO SCH (10:35)
[2021-01-31] MEDS: ONDANSETRON *ODT* 4 MG TABLET SL PRN (10:36)
== END 2021-01-31 12:08 | disposition other institution (70) | DRG 774 ==
LOC: YASAS 09:30 → Y3N 12:00
PROVIDERS: ADMIT Allergy & Immunology; ATTEND Allergy & Immunology
PROC: HZ2ZZZZ Detoxification Services for Substance Abuse Treatment (ICD-10-PCS; principal; 2021-01-27)
DX: F10.230 Alcohol dependence with withdrawal, uncomplicated (principal); F14.20 Cocaine dependence, uncomplicated; F17.210 Nicotine dependence, cigarettes, uncomplicated; F19.280 Other psychoactive substance dependence with psychoactive substance-induced anxiety disorder; F19.282 Other psychoactive substance dependence with psychoactive substance-induced sleep disorder; F19.24 Other psychoactive substance dependence with psychoactive substance-induced mood disorder; F43.10 Post-traumatic stress disorder, unspecified; G56.01 Carpal tunnel syndrome, right upper limb; M54.41 Lumbago with sciatica, right side; G89.29 Other chronic pain; H91.92 Unspecified hearing loss, left ear; M19.90 Unspecified osteoarthritis, unspecified site; Z87.39 Personal history of other diseases of the musculoskeletal system and connective tissue; Z87.81 Personal history of (healed) traumatic fracture; Z88.1 Allergy status to other antibiotic agents
CPT/HCPCS: 36415; 80053; 82962; 84132; 85027; 86780; 87389; C9803; Q0162; U0003; U0005

== ENCOUNTER 2021-01-31 12:42 | Inpatient (IN) | payer OTHER ==
[2021-01-31] MEDS ORDERED: MAGNESIUM CITRATE 300 ML BOTTLE PO PRN (13:51)
[2021-01-31] MEDS ORDERED: ACETAMINOPHEN 325 MG TABLET (FP) PO PRN (13:51)
[2021-01-31] MEDS ORDERED: LOPERAMIDE HCL 2 MG CAPSULE PO PRN (13:51)
[2021-01-31] MEDS ORDERED: MENTHOL/PHENOL 1 EACH UD MM PRN (13:51)
[2021-01-31] MEDS ORDERED: guaiFENesin 200 MG/10 ML 10 ML UNIT-DOSE CUPS PO PRN (13:51)
[2021-01-31] MEDS ORDERED: MAGNESIUM HYDROX 2400MG/30ML ORAL SUSPENSION 30 ML CUP PO PRN (13:51)
[2021-01-31] MEDS ORDERED: NICOTINE POLACRILEX 2 MG GUM BUC PRN (13:51)
[2021-01-31] MEDS: FLUOCINONIDE 0.05% CREAM (15 GM TUBE) TP SCH ×3 (15:01→21:15)
[2021-01-31] MEDS: hydrOXYzine PAMOATE 25 MG CAPSULE (FP) PO PRN ×2 (18:11→22:24)
[2021-01-31] MEDS: IBUPROFEN 400 MG TABLET (FP) PO PRN (18:11)
[2021-01-31] MEDS: THIAMINE HCL 100 MG TABLET (FP) PO SCH (21:15)
[2021-01-31] MEDS: MELATONIN 5 MG TABLETS PO SCH (21:15)
[2021-01-31] MEDS: ASPIRIN 325 MG TABLET PO SCH (21:16)
[2021-01-31] MEDS: MAG HYDROX/AL HYDROX/SIMETH 30 ML UNIT-DOSE CUP PO PRN (22:24)
[2021-02-01] MEDS: hydrOXYzine PAMOATE 25 MG CAPSULE (FP) PO PRN ×4 (03:47→21:40)
[2021-02-01] MEDS ORDERED: ONDANSETRON *ODT* 4 MG TABLET SL PRN (07:16)
[2021-02-01] MEDS: TOPIRAMATE 100 MG TABLET PO SCH (09:14)
[2021-02-01] MEDS: FLUOCINONIDE 0.05% CREAM (15 GM TUBE) TP SCH ×4 (09:14→21:42)
[2021-02-01] MEDS: NICOTINE 21 MG/24 HOURS TOPICAL PATCH TD SCH (09:14)
[2021-02-01] MEDS: PANTOPRAZOLE 20 MG TABLET PO SCH (09:14)
[2021-02-01] MEDS: PRENATAL VITAMINS W/ FOLIC ACID TABLET (FP) PO SCH (09:14)
[2021-02-01] MEDS: predniSONE 10 MG TABLET (UD) PO SCH (09:14)
[2021-02-01] MEDS: IBUPROFEN 400 MG TABLET (FP) PO PRN (09:15)
[2021-02-01] MEDS: METHOCARBAMOL 500 MG TABLET PO PRN ×2 (13:33→21:41)
[2021-02-01] MEDS: MAG HYDROX/AL HYDROX/SIMETH 30 ML UNIT-DOSE CUP PO PRN ×2 (16:45→21:56)
[2021-02-01] MEDS: ASPIRIN 325 MG TABLET PO SCH (21:40)
[2021-02-01] MEDS: THIAMINE HCL 100 MG TABLET (FP) PO SCH (21:40)
[2021-02-01] MEDS: MELATONIN 5 MG TABLETS PO SCH (21:40)
[2021-02-01] MEDS ORDERED: traZODone HCL 50 MG TABLET (FP) PO SCH (22:00)
[2021-02-01] MEDS ORDERED: SUVOREXANT 10 MG TABLET PO PRN ×2 (22:00)
[2021-02-02] MEDS: DICYCLOMINE HCL 10 MG CAPSULE PO PRN (02:03)
[2021-02-02] MEDS: hydrOXYzine PAMOATE 25 MG CAPSULE (FP) PO PRN ×4 (02:03→21:08)
[2021-02-02] MEDS: TOPIRAMATE 100 MG TABLET PO SCH (09:31)
[2021-02-02] MEDS: FLUOCINONIDE 0.05% CREAM (15 GM TUBE) TP SCH ×4 (09:31→21:09)
[2021-02-02] MEDS: PRENATAL VITAMINS W/ FOLIC ACID TABLET (FP) PO SCH (09:31)
[2021-02-02] MEDS: NICOTINE 21 MG/24 HOURS TOPICAL PATCH TD SCH (09:31)
[2021-02-02] MEDS: PANTOPRAZOLE 20 MG TABLET PO SCH (09:31)
[2021-02-02] MEDS: predniSONE 10 MG TABLET (UD) PO SCH (09:31)
[2021-02-02] MEDS: METHOCARBAMOL 500 MG TABLET PO PRN ×2 (09:32→21:08)
[2021-02-02] MEDS: MAG HYDROX/AL HYDROX/SIMETH 30 ML UNIT-DOSE CUP PO PRN ×2 (11:07→17:22)
[2021-02-02] MEDS ORDERED: diphenhydrAMINE HCL 25 MG CAPSULE (FP) PO PRN (17:12)
[2021-02-02] MEDS: THIAMINE HCL 100 MG TABLET (FP) PO SCH (21:08)
[2021-02-02] MEDS: MELATONIN 5 MG TABLETS PO SCH (21:08)
[2021-02-02] MEDS: traZODone HCL 100 MG TABLET (FP) PO SCH (21:09)
[2021-02-02] MEDS: P-EPHED 60MG/TRIPROLIDI 2.5MG TABLET PO PRN (23:30)
[2021-02-03 10:07] LABS: HEMATOCRIT 40.5 % (32.4-45.2); HEMOGLOBIN 13.5 GM/dL (10.7-15.3); MCH 32.5 pg (25.7-33.7); MCHC 33.3 g/dl (32.0-36.0); MEAN CELL VOLUME 97.5 fl (80-96); MEAN PLT VOLUME 7.7 fl (7.5-11.1); PLATELET COUNT 396 K/MM3 (134-434); RBC 4.16 M/mm3 (3.60-5.2); RDW 13.6 % (11.6-15.6); WHITE BLOOD COUNT 12.2 K/mm3 (4.0-10.0)
[2021-02-03] MEDS: predniSONE 10 MG TABLET (UD) PO SCH (10:43)
[2021-02-03] MEDS: PRENATAL VITAMINS W/ FOLIC ACID TABLET (FP) PO SCH (10:43)
[2021-02-03] MEDS: NICOTINE 21 MG/24 HOURS TOPICAL PATCH TD SCH (10:43)
[2021-02-03] MEDS: FLUOCINONIDE 0.05% CREAM (15 GM TUBE) TP SCH ×4 (10:44→21:54)
[2021-02-03] MEDS: PANTOPRAZOLE 20 MG TABLET PO SCH (10:44)
[2021-02-03] MEDS: TOPIRAMATE 100 MG TABLET PO SCH (10:44)
[2021-02-03] MEDS: METHOCARBAMOL 500 MG TABLET PO PRN ×2 (10:45→21:54)
[2021-02-03] MEDS: MELATONIN 5 MG TABLETS PO SCH (21:52)
[2021-02-03] MEDS: traZODone HCL 100 MG TABLET (FP) PO SCH (21:52)
[2021-02-03] MEDS: hydrOXYzine PAMOATE 25 MG CAPSULE (FP) PO PRN (21:53)
[2021-02-03] MEDS: THIAMINE HCL 100 MG TABLET (FP) PO SCH (21:53)
[2021-02-03] MEDS: IBUPROFEN 400 MG TABLET (FP) PO PRN (21:57)
[2021-02-03] MEDS: SIMETHICONE 80 MG TAB.CHEW (FP) PO PRN (22:41)
[2021-02-03] MEDS: P-EPHED 60MG/TRIPROLIDI 2.5MG TABLET PO PRN (22:42)
[2021-02-04] MEDS: PANTOPRAZOLE 20 MG TABLET PO SCH (10:06)
[2021-02-04] MEDS: TOPIRAMATE 100 MG TABLET PO SCH (10:06)
[2021-02-04] MEDS: NICOTINE 21 MG/24 HOURS TOPICAL PATCH TD SCH (10:06)
[2021-02-04] MEDS: PRENATAL VITAMINS W/ FOLIC ACID TABLET (FP) PO SCH (10:06)
[2021-02-04] MEDS: predniSONE 10 MG TABLET (UD) PO SCH (10:08)
[2021-02-04] MEDS: METHOCARBAMOL 500 MG TABLET PO PRN ×3 (10:09→21:12)
[2021-02-04] MEDS: FLUOCINONIDE 0.05% CREAM (15 GM TUBE) TP SCH ×4 (10:40→21:13)
[2021-02-04] MEDS: hydrOXYzine PAMOATE 25 MG CAPSULE (FP) PO PRN ×3 (14:10→21:11)
[2021-02-04] MEDS: DICYCLOMINE HCL 10 MG CAPSULE PO PRN (14:11)
[2021-02-04] MEDS: SIMETHICONE 80 MG TAB.CHEW (FP) PO PRN ×2 (15:26→21:11)
[2021-02-04] MEDS: P-EPHED 60MG/TRIPROLIDI 2.5MG TABLET PO PRN (18:07)
[2021-02-04] MEDS: MELATONIN 5 MG TABLETS PO SCH (21:09)
[2021-02-04] MEDS: traZODone HCL 100 MG TABLET (FP) PO SCH (21:09)
[2021-02-04] MEDS: ASPIRIN 325 MG TABLET PO SCH (21:09)
[2021-02-04] MEDS: THIAMINE HCL 100 MG TABLET (FP) PO SCH (21:09)
[2021-02-05] MEDS: hydrOXYzine PAMOATE 25 MG CAPSULE (FP) PO PRN ×2 (01:42→10:18)
[2021-02-05] MEDS: P-EPHED 60MG/TRIPROLIDI 2.5MG TABLET PO PRN (01:42)
[2021-02-05 06:58] VITALS: BP 111/76; PULSE 72; TEMP 97.1
[2021-02-05] MEDS: PRENATAL VITAMINS W/ FOLIC ACID TABLET (FP) PO SCH (10:15)
[2021-02-05] MEDS: PANTOPRAZOLE 20 MG TABLET PO SCH (10:15)
[2021-02-05] MEDS: TOPIRAMATE 100 MG TABLET PO SCH (10:15)
[2021-02-05] MEDS: predniSONE 10 MG TABLET (UD) PO SCH (10:15)
[2021-02-05] MEDS: FLUOCINONIDE 0.05% CREAM (15 GM TUBE) TP SCH (10:16)
[2021-02-05] MEDS: NICOTINE 21 MG/24 HOURS TOPICAL PATCH TD SCH (10:17)
== END 2021-02-05 12:00 | disposition home or self-care (01) | DRG 772 ==
LOC: YASAS 12:42 → Y3W 12:43
PROVIDERS: ADMIT Allergy & Immunology; ATTEND Allergy & Immunology
PROC: HZ42ZZZ Group Counseling for Substance Abuse Treatment, Cognitive-Behavioral (ICD-10-PCS; principal; 2021-01-31)
DX: F10.20 Alcohol dependence, uncomplicated (principal); F14.20 Cocaine dependence, uncomplicated; F17.210 Nicotine dependence, cigarettes, uncomplicated; K62.5 Hemorrhage of anus and rectum; Z86.718 Personal history of other venous thrombosis and embolism; Z79.82 Long term (current) use of aspirin; R14.3 Flatulence; S02.40DD Maxillary fracture, left side, subsequent encounter for fracture with routine healing; Y04.8XXD Assault by other bodily force, subsequent encounter
CPT/HCPCS: 36415; 85027; Q0162

== ENCOUNTER 2021-02-03 13:49 | Emergency (ER) | payer OTHER ==
[2021-02-03 14:03] VITALS: BP 126/68; PULSE 82; TEMP 98.6; BMI 34.1
== END 2021-02-03 21:22 | disposition short-term general hospital (02) ==
LOC: JER 13:49
DX: K62.5 Hemorrhage of anus and rectum (principal); S02.40DA Maxillary fracture, left side, initial encounter for closed fracture; Y04.8XXA Assault by other bodily force, initial encounter
CPT/HCPCS: 36415; 70450-TC; 70486-TC; 82272; 99285-25

== ENCOUNTER 2021-02-28 11:17 | Inpatient (IN) | payer OTHER ==
[2021-02-28 12:10] VITALS: BMI 39.9
[2021-02-28] MEDS ORDERED: MAGNESIUM CITRATE 300 ML BOTTLE PO PRN (12:45)
[2021-02-28] MEDS ORDERED: MAGNESIUM HYDROX 2400MG/30ML ORAL SUSPENSION 30 ML CUP PO PRN (12:45)
[2021-02-28] MEDS ORDERED: BISMUTH SUBSALICYLATE 262 MG/15 ML BTL PO PRN (12:45)
[2021-02-28] MEDS ORDERED: ACETAMINOPHEN 325 MG TABLET (FP) PO PRN ×2 (12:45)
[2021-02-28] MEDS ORDERED: MENTHOL/PHENOL 1 EACH UD MM PRN (12:45)
[2021-02-28] MEDS ORDERED: NICOTINE POLACRILEX 2 MG GUM BUC PRN (12:45)
[2021-02-28] MEDS ORDERED: diazePAM 5 MG TABLET ONE (13:32)
[2021-02-28] MEDS: diazePAM 5 MG TABLET PO PRN (13:35)
[2021-02-28] MEDS: diazePAM 5 MG TABLET PO SCH ×3 (14:02→22:30)
[2021-02-28] MEDS: PRENATAL VITAMINS W/ FOLIC ACID TABLET (FP) PO SCH (14:11)
[2021-02-28] MEDS: hydrOXYzine PAMOATE 25 MG CAPSULE (FP) PO SCH ×3 (14:11→22:35)
[2021-02-28] MEDS: METHOCARBAMOL 500 MG TABLET PO PRN (14:11)
[2021-02-28] MEDS: NICOTINE 14 MG/24 HOURS TOPICAL PATCH TD SCH (14:12)
[2021-02-28 15:16] LABS: HEMATOCRIT 37.6 % (32.4-45.2); HEMOGLOBIN 12.7 GM/dL (10.7-15.3); MCH 31.8 pg (25.7-33.7); MCHC 33.8 g/dl (32.0-36.0); MEAN CELL VOLUME 94.1 fl (80-96); MEAN PLT VOLUME 7.7 fl (7.5-11.1); PLATELET COUNT 463 10^3/uL (134-434); RDW 13.8 % (11.6-15.6); WHITE BLOOD COUNT 7.6 K/mm3 (4.0-10.0)
[2021-02-28 15:22] LABS: ALBUMIN 3.7 g/dl (3.4-5.0); BLOOD UREA NITROGEN 13.1 mg/dL (7-18); CALCIUM 9.3 mg/dL (8.5-10.1)
[2021-02-28 15:26] LABS: CREATININE 0.7 mg/dL (0.55-1.3)
[2021-02-28 15:27] LABS: BILIRUBIN,TOTAL 0.4 mg/dL (0.2-1); TOT PROT 7.4 g/dl (6.4-8.2)
[2021-02-28 16:15] LABS: HIV INTERPRETATION NEGATIVE (NEGATIVE)
[2021-02-28] MEDS ORDERED: MELATONIN 5 MG TABLETS PO SCH (22:00)
[2021-02-28] MEDS: traZODone HCL 50 MG TABLET (FP) PO SCH (22:30)
[2021-02-28] MEDS: THIAMINE HCL 100 MG TABLET (FP) PO SCH (22:30)
[2021-02-28] MEDS: IBUPROFEN 400 MG TABLET (FP) PO PRN (22:33)
[2021-03-01] MEDS: diazePAM 5 MG TABLET PO SCH ×4 (06:31→22:40)
[2021-03-01] MEDS: hydrOXYzine PAMOATE 25 MG CAPSULE (FP) PO SCH ×5 (06:31→22:39)
[2021-03-01] MEDS: IBUPROFEN 400 MG TABLET (FP) PO PRN ×2 (06:33→12:17)
[2021-03-01] MEDS: ASPIRIN 81 MG CHEWABLE TABLETS PO SCH (12:05)
[2021-03-01] MEDS: PRENATAL VITAMINS W/ FOLIC ACID TABLET (FP) PO SCH (12:05)
[2021-03-01] MEDS: NICOTINE 14 MG/24 HOURS TOPICAL PATCH TD SCH (12:08)
[2021-03-01] MEDS: predniSONE 10 MG TABLET (UD) PO SCH (12:16)
[2021-03-01] MEDS: METHOCARBAMOL 500 MG TABLET PO PRN ×3 (12:18→22:44)
[2021-03-01] MEDS: FLUOCINONIDE 0.05% TOP OINT (60 GM TUBE) TP SCH ×2 (14:58→22:42)
[2021-03-01] MEDS: AMOX TR/POT CLAV 875MG/125MG TABLETS (FP) PO SCH (17:52)
[2021-03-01] MEDS: traZODone HCL 50 MG TABLET (FP) PO SCH (22:40)
[2021-03-01] MEDS: THIAMINE HCL 100 MG TABLET (FP) PO SCH (22:41)
[2021-03-02] MEDS: diazePAM 5 MG TABLET PO SCH ×3 (06:37→22:27)
[2021-03-02] MEDS: hydrOXYzine PAMOATE 25 MG CAPSULE (FP) PO SCH ×5 (06:38→22:29)
[2021-03-02] MEDS: METHOCARBAMOL 500 MG TABLET PO PRN ×2 (06:41→22:33)
[2021-03-02] MEDS: P-EPHED 60MG/TRIPROLIDI 2.5MG TABLET PO PRN ×2 (07:09→22:30)
[2021-03-02] MEDS: AMOX TR/POT CLAV 875MG/125MG TABLETS (FP) PO SCH ×2 (08:26→17:49)
[2021-03-02] MEDS: ASPIRIN 81 MG CHEWABLE TABLETS PO SCH (10:48)
[2021-03-02] MEDS: predniSONE 10 MG TABLET (UD) PO SCH (10:48)
[2021-03-02] MEDS: PRENATAL VITAMINS W/ FOLIC ACID TABLET (FP) PO SCH (10:48)
[2021-03-02] MEDS: NICOTINE 14 MG/24 HOURS TOPICAL PATCH TD SCH (10:49)
[2021-03-02] MEDS: FLUOCINONIDE 0.05% TOP OINT (60 GM TUBE) TP SCH ×2 (10:49→22:36)
[2021-03-02] MEDS: IBUPROFEN 400 MG TABLET (FP) PO PRN (10:51)
[2021-03-02] MEDS: diazePAM 5 MG TABLET PO PRN ×2 (10:53→17:44)
[2021-03-02] MEDS ORDERED: ALBUTEROL SO4 HFA INHALER IH PRN (11:19)
[2021-03-02] MEDS: BUDESONIDE/FORMETEROL FUMARATE 80/4.5 mcg INHALER IH SCH ×2 (15:55→22:31)
[2021-03-02] MEDS: MAG HYDROX/AL HYDROX/SIMETH 30 ML UNIT-DOSE CUP PO PRN (19:49)
[2021-03-02] MEDS: MELATONIN 5 MG TABLETS PO PRN (22:26)
[2021-03-02] MEDS: THIAMINE HCL 100 MG TABLET (FP) PO SCH (22:27)
[2021-03-02] MEDS: traZODone HCL 50 MG TABLET (FP) PO SCH (22:28)
[2021-03-03] MEDS: diazePAM 5 MG TABLET PO SCH ×2 (05:38→17:09)
[2021-03-03] MEDS: METHOCARBAMOL 500 MG TABLET PO PRN ×3 (05:38→22:22)
[2021-03-03] MEDS: hydrOXYzine PAMOATE 25 MG CAPSULE (FP) PO SCH ×5 (05:38→22:22)
[2021-03-03] MEDS: AMOX TR/POT CLAV 875MG/125MG TABLETS (FP) PO SCH ×2 (08:12→17:09)
[2021-03-03] MEDS: predniSONE 10 MG TABLET (UD) PO SCH (10:06)
[2021-03-03] MEDS: FLUOCINONIDE 0.05% TOP OINT (60 GM TUBE) TP SCH ×2 (10:06→23:31)
[2021-03-03] MEDS: ASPIRIN 81 MG CHEWABLE TABLETS PO SCH (10:06)
[2021-03-03] MEDS: PRENATAL VITAMINS W/ FOLIC ACID TABLET (FP) PO SCH (10:06)
[2021-03-03] MEDS: BUDESONIDE/FORMETEROL FUMARATE 80/4.5 mcg INHALER IH SCH ×2 (10:07→23:31)
[2021-03-03] MEDS: NICOTINE 14 MG/24 HOURS TOPICAL PATCH TD SCH (10:07)
[2021-03-03] MEDS: ONDANSETRON *ODT* 4 MG TABLET SL PRN (10:08)
[2021-03-03] MEDS: diazePAM 5 MG TABLET PO PRN (12:30)
[2021-03-03] MEDS: IBUPROFEN 400 MG TABLET (FP) PO PRN (17:10)
[2021-03-03] MEDS: MAG HYDROX/AL HYDROX/SIMETH 30 ML UNIT-DOSE CUP PO PRN (20:24)
[2021-03-03] MEDS: THIAMINE HCL 100 MG TABLET (FP) PO SCH (22:21)
[2021-03-03] MEDS: MELATONIN 5 MG TABLETS PO PRN (22:21)
[2021-03-03] MEDS: traZODone HCL 50 MG TABLET (FP) PO SCH (22:22)
[2021-03-03] MEDS: P-EPHED 60MG/TRIPROLIDI 2.5MG TABLET PO PRN (22:23)
[2021-03-04] MEDS ORDERED: diazePAM 5 MG TABLET PO ONE (06:00)
[2021-03-04] MEDS: hydrOXYzine PAMOATE 25 MG CAPSULE (FP) PO SCH ×3 (06:16→14:16)
[2021-03-04] MEDS: METHOCARBAMOL 500 MG TABLET PO PRN ×2 (06:16→13:18)
[2021-03-04] MEDS: ONDANSETRON *ODT* 4 MG TABLET SL PRN (06:17)
[2021-03-04] MEDS: AMOX TR/POT CLAV 875MG/125MG TABLETS (FP) PO SCH (07:54)
[2021-03-04] MEDS: ASPIRIN 81 MG CHEWABLE TABLETS PO SCH (10:13)
[2021-03-04] MEDS: FLUOCINONIDE 0.05% TOP OINT (60 GM TUBE) TP SCH (10:13)
[2021-03-04] MEDS: BUDESONIDE/FORMETEROL FUMARATE 80/4.5 mcg INHALER IH SCH (10:13)
[2021-03-04] MEDS: PRENATAL VITAMINS W/ FOLIC ACID TABLET (FP) PO SCH (10:13)
[2021-03-04] MEDS: predniSONE 10 MG TABLET (UD) PO SCH (10:13)
[2021-03-04] MEDS: NICOTINE 14 MG/24 HOURS TOPICAL PATCH TD SCH (10:14)
[2021-03-04] MEDS: IBUPROFEN 400 MG TABLET (FP) PO PRN (13:18)
[2021-03-04 13:51] VITALS: BP 138/76; PULSE 81; TEMP 96.1
[2021-03-04] MEDS ORDERED: MASKS NR ONE (15:45)
== END 2021-03-04 15:48 | disposition other institution (70) | DRG 774 ==
LOC: YASAS 11:17 → Y6N 12:13
PROVIDERS: ADMIT Allergy & Immunology; ATTEND Allergy & Immunology
PROC: HZ2ZZZZ Detoxification Services for Substance Abuse Treatment (ICD-10-PCS; principal; 2021-02-28)
DX: F10.230 Alcohol dependence with withdrawal, uncomplicated (principal); F14.20 Cocaine dependence, uncomplicated; F17.210 Nicotine dependence, cigarettes, uncomplicated; F19.282 Other psychoactive substance dependence with psychoactive substance-induced sleep disorder; F19.24 Other psychoactive substance dependence with psychoactive substance-induced mood disorder; F43.10 Post-traumatic stress disorder, unspecified; J43.9 Emphysema, unspecified; J45.909 Unspecified asthma, uncomplicated; G56.01 Carpal tunnel syndrome, right upper limb; H91.92 Unspecified hearing loss, left ear; M54.41 Lumbago with sciatica, right side; G89.29 Other chronic pain; M19.90 Unspecified osteoarthritis, unspecified site; R73.9 Hyperglycemia, unspecified; Z91.410 Personal history of adult physical and sexual abuse; Z88.1 Allergy status to other antibiotic agents
CPT/HCPCS: 36415; 80053; 82947; 82962; 83036; 85027; 86780; 87086; 87389; C9803; Q0162; U0003; U0005

== ENCOUNTER 2021-03-04 15:36 | Inpatient (IN) | payer OTHER ==
[2021-03-04] MEDS ORDERED: MAGNESIUM HYDROX 2400MG/30ML ORAL SUSPENSION 30 ML CUP PO PRN (18:20)
[2021-03-04] MEDS ORDERED: guaiFENesin 200 MG/10 ML 10 ML UNIT-DOSE CUPS PO PRN (18:20)
[2021-03-04] MEDS ORDERED: NICOTINE POLACRILEX 2 MG GUM BUC PRN (18:20)
[2021-03-04] MEDS ORDERED: MENTHOL/PHENOL 1 EACH UD MM PRN (18:20)
[2021-03-04] MEDS ORDERED: MAGNESIUM CITRATE 300 ML BOTTLE PO PRN (18:20)
[2021-03-04] MEDS ORDERED: ACETAMINOPHEN 325 MG TABLET (FP) PO PRN (18:20)
[2021-03-04] MEDS ORDERED: ALBUTEROL SO4 HFA INHALER IH PRN (18:26)
[2021-03-04] MEDS: MELATONIN 5 MG TABLETS PO SCH (21:14)
[2021-03-04] MEDS: THIAMINE HCL 100 MG TABLET (FP) PO SCH (21:14)
[2021-03-04] MEDS: BUDESONIDE/FORMETEROL FUMARATE 80/4.5 mcg INHALER IH SCH (21:16)
[2021-03-04] MEDS ORDERED: AUGMENTIN 875 MG PO SCH (22:00)
[2021-03-04] MEDS: IBUPROFEN 400 MG TABLET (FP) PO PRN (22:05)
[2021-03-05] MEDS: AMOX TR/POT CLAV 875MG/125MG TABLETS (FP) PO SCH ×2 (07:06→17:25)
[2021-03-05] MEDS: BUDESONIDE/FORMETEROL FUMARATE 80/4.5 mcg INHALER IH SCH ×2 (10:33→21:40)
[2021-03-05] MEDS: PRENATAL VITAMINS W/ FOLIC ACID TABLET (FP) PO SCH (10:33)
[2021-03-05] MEDS: predniSONE 10 MG TABLET (UD) PO SCH (13:56)
[2021-03-05] MEDS: IBUPROFEN 400 MG TABLET (FP) PO PRN ×2 (13:59→21:37)
[2021-03-05] MEDS: hydrOXYzine PAMOATE 25 MG CAPSULE (FP) PO PRN ×3 (14:00→21:37)
[2021-03-05] MEDS: traZODone HCL 50 MG TABLET (FP) PO SCH (21:36)
[2021-03-05] MEDS: MELATONIN 5 MG TABLETS PO SCH (21:37)
[2021-03-05] MEDS: THIAMINE HCL 100 MG TABLET (FP) PO SCH (21:37)
[2021-03-05] MEDS: P-EPHED 60MG/TRIPROLIDI 2.5MG TABLET PO PRN (21:38)
[2021-03-06] MEDS: MAG HYDROX/AL HYDROX/SIMETH 30 ML UNIT-DOSE CUP PO PRN ×3 (01:46→17:21)
[2021-03-06] MEDS: TOPIRAMATE 100 MG TABLET PO SCH (06:35)
[2021-03-06] MEDS: hydrOXYzine PAMOATE 25 MG CAPSULE (FP) PO PRN ×2 (09:39→21:15)
[2021-03-06] MEDS: PRENATAL VITAMINS W/ FOLIC ACID TABLET (FP) PO SCH (09:39)
[2021-03-06] MEDS: IBUPROFEN 400 MG TABLET (FP) PO PRN (09:40)
[2021-03-06] MEDS: AMOX TR/POT CLAV 875MG/125MG TABLETS (FP) PO SCH ×2 (09:40→17:21)
[2021-03-06] MEDS: predniSONE 10 MG TABLET (UD) PO SCH (09:40)
[2021-03-06] MEDS: BUDESONIDE/FORMETEROL FUMARATE 80/4.5 mcg INHALER IH SCH ×2 (10:04→21:16)
[2021-03-06] MEDS: METHOCARBAMOL 500 MG TABLET PO PRN ×2 (12:41→21:15)
[2021-03-06] MEDS: THIAMINE HCL 100 MG TABLET (FP) PO SCH (21:14)
[2021-03-06] MEDS: MELATONIN 5 MG TABLETS PO SCH (21:14)
[2021-03-06] MEDS: traZODone HCL 50 MG TABLET (FP) PO SCH (21:15)
[2021-03-06] MEDS: P-EPHED 60MG/TRIPROLIDI 2.5MG TABLET PO PRN (22:02)
[2021-03-07] MEDS: MAG HYDROX/AL HYDROX/SIMETH 30 ML UNIT-DOSE CUP PO PRN ×2 (01:16→09:55)
[2021-03-07] MEDS: TOPIRAMATE 100 MG TABLET PO SCH (06:40)
[2021-03-07] MEDS: AMOX TR/POT CLAV 875MG/125MG TABLETS (FP) PO SCH ×2 (08:54→17:32)
[2021-03-07] MEDS ORDERED: ONDANSETRON *ODT* 4 MG TABLET SL PRN (09:29)
[2021-03-07] MEDS: predniSONE 10 MG TABLET (UD) PO SCH (09:54)
[2021-03-07] MEDS: PRENATAL VITAMINS W/ FOLIC ACID TABLET (FP) PO SCH (09:54)
[2021-03-07] MEDS: BUDESONIDE/FORMETEROL FUMARATE 80/4.5 mcg INHALER IH SCH ×2 (09:55→21:29)
[2021-03-07] MEDS: hydrOXYzine PAMOATE 25 MG CAPSULE (FP) PO PRN (09:56)
[2021-03-07] MEDS: METHOCARBAMOL 500 MG TABLET PO PRN ×3 (09:56→21:29)
[2021-03-07] MEDS: hydrOXYzine PAMOATE 50 MG CAPSULE (FP) PO PRN ×2 (13:38→21:31)
[2021-03-07] MEDS: P-EPHED 60MG/TRIPROLIDI 2.5MG TABLET PO PRN (16:55)
[2021-03-07] MEDS: THIAMINE HCL 100 MG TABLET (FP) PO SCH (21:29)
[2021-03-07] MEDS: MELATONIN 5 MG TABLETS PO SCH (21:29)
[2021-03-07] MEDS: traZODone HCL 50 MG TABLET (FP) PO SCH (21:29)
[2021-03-07] MEDS: IBUPROFEN 400 MG TABLET (FP) PO PRN (21:31)
[2021-03-08] MEDS: MAG HYDROX/AL HYDROX/SIMETH 30 ML UNIT-DOSE CUP PO PRN ×2 (00:02→21:18)
[2021-03-08] MEDS: TOPIRAMATE 100 MG TABLET PO SCH (06:36)
[2021-03-08] MEDS: AMOX TR/POT CLAV 875MG/125MG TABLETS (FP) PO SCH ×2 (07:07→17:11)
[2021-03-08] MEDS: BUDESONIDE/FORMETEROL FUMARATE 80/4.5 mcg INHALER IH SCH ×2 (09:51→21:18)
[2021-03-08] MEDS: METHOCARBAMOL 500 MG TABLET PO PRN ×2 (09:51→21:15)
[2021-03-08] MEDS: PRENATAL VITAMINS W/ FOLIC ACID TABLET (FP) PO SCH (09:51)
[2021-03-08] MEDS: predniSONE 10 MG TABLET (UD) PO SCH (09:51)
[2021-03-08] MEDS: hydrOXYzine PAMOATE 50 MG CAPSULE (FP) PO PRN ×3 (09:52→21:16)
[2021-03-08] MEDS: IBUPROFEN 400 MG TABLET (FP) PO PRN (17:11)
[2021-03-08] MEDS: traZODone HCL 50 MG TABLET (FP) PO SCH (21:14)
[2021-03-08] MEDS: MELATONIN 5 MG TABLETS PO SCH (21:16)
[2021-03-08] MEDS: THIAMINE HCL 100 MG TABLET (FP) PO SCH (21:18)
[2021-03-09] MEDS: TOPIRAMATE 100 MG TABLET PO SCH (06:52)
[2021-03-09] MEDS: AMOX TR/POT CLAV 875MG/125MG TABLETS (FP) PO SCH ×2 (07:02→17:53)
[2021-03-09] MEDS: BUDESONIDE/FORMETEROL FUMARATE 80/4.5 mcg INHALER IH SCH ×2 (10:32→21:36)
[2021-03-09] MEDS: PRENATAL VITAMINS W/ FOLIC ACID TABLET (FP) PO SCH (10:32)
[2021-03-09] MEDS: METHOCARBAMOL 500 MG TABLET PO PRN ×2 (12:48→21:35)
[2021-03-09] MEDS: hydrOXYzine PAMOATE 50 MG CAPSULE (FP) PO PRN ×3 (12:48→21:35)
[2021-03-09] MEDS: predniSONE 10 MG TABLET (UD) PO SCH (12:48)
[2021-03-09] MEDS: MAG HYDROX/AL HYDROX/SIMETH 30 ML UNIT-DOSE CUP PO PRN ×2 (16:02→23:53)
[2021-03-09] MEDS: MELATONIN 5 MG TABLETS PO SCH (21:34)
[2021-03-09] MEDS: traZODone HCL 50 MG TABLET (FP) PO SCH (21:34)
[2021-03-09] MEDS: IBUPROFEN 400 MG TABLET (FP) PO PRN (21:35)
[2021-03-09] MEDS: THIAMINE HCL 100 MG TABLET (FP) PO SCH (21:35)
[2021-03-10] MEDS: TOPIRAMATE 100 MG TABLET PO SCH (06:07)
[2021-03-10] MEDS: AMOX TR/POT CLAV 875MG/125MG TABLETS (FP) PO SCH ×2 (07:01→17:39)
[2021-03-10] MEDS: hydrOXYzine PAMOATE 50 MG CAPSULE (FP) PO PRN ×4 (08:36→22:29)
[2021-03-10] MEDS: IBUPROFEN 400 MG TABLET (FP) PO PRN ×2 (08:36→21:11)
[2021-03-10] MEDS: PRENATAL VITAMINS W/ FOLIC ACID TABLET (FP) PO SCH (11:58)
[2021-03-10] MEDS: BUDESONIDE/FORMETEROL FUMARATE 80/4.5 mcg INHALER IH SCH ×2 (11:58→21:11)
[2021-03-10] MEDS: predniSONE 10 MG TABLET (UD) PO SCH (12:17)
[2021-03-10] MEDS: FLUTICASONE PROP 0.05% 16 GM NASAL SPRAY NS PRN (12:32)
[2021-03-10] MEDS: METHOCARBAMOL 500 MG TABLET PO PRN ×2 (12:34→21:09)
[2021-03-10] MEDS: MAG HYDROX/AL HYDROX/SIMETH 30 ML UNIT-DOSE CUP PO PRN ×2 (15:46→22:29)
[2021-03-10] MEDS: MELATONIN 5 MG TABLETS PO SCH (21:09)
[2021-03-10] MEDS: traZODone HCL 50 MG TABLET (FP) PO SCH (21:09)
[2021-03-10] MEDS: THIAMINE HCL 100 MG TABLET (FP) PO SCH (21:11)
[2021-03-10] MEDS: P-EPHED 60MG/TRIPROLIDI 2.5MG TABLET PO PRN (21:11)
[2021-03-11] MEDS: TOPIRAMATE 100 MG TABLET PO SCH (06:31)
[2021-03-11] MEDS: AMOX TR/POT CLAV 875MG/125MG TABLETS (FP) PO SCH (07:25)
[2021-03-11] MEDS: IBUPROFEN 400 MG TABLET (FP) PO PRN (08:45)
[2021-03-11] MEDS: hydrOXYzine PAMOATE 50 MG CAPSULE (FP) PO PRN ×2 (08:46→21:24)
[2021-03-11] MEDS: BUDESONIDE/FORMETEROL FUMARATE 80/4.5 mcg INHALER IH SCH ×2 (10:27→22:29)
[2021-03-11] MEDS: PRENATAL VITAMINS W/ FOLIC ACID TABLET (FP) PO SCH (10:27)
[2021-03-11] MEDS: predniSONE 10 MG TABLET (UD) PO SCH (12:38)
[2021-03-11] MEDS: METHOCARBAMOL 500 MG TABLET PO PRN ×2 (12:39→21:23)
[2021-03-11] MEDS: FLUTICASONE PROP 0.05% 16 GM NASAL SPRAY NS PRN (14:17)
[2021-03-11] MEDS: MELATONIN 5 MG TABLETS PO SCH (21:23)
[2021-03-11] MEDS: traZODone HCL 50 MG TABLET (FP) PO SCH (21:23)
[2021-03-11] MEDS: THIAMINE HCL 100 MG TABLET (FP) PO SCH (21:23)
[2021-03-11] MEDS: MAG HYDROX/AL HYDROX/SIMETH 30 ML UNIT-DOSE CUP PO PRN (21:25)
[2021-03-11] MEDS: P-EPHED 60MG/TRIPROLIDI 2.5MG TABLET PO PRN (21:58)
[2021-03-12] MEDS: TOPIRAMATE 100 MG TABLET PO SCH (07:04)
[2021-03-12] MEDS: predniSONE 10 MG TABLET (UD) PO SCH (10:04)
[2021-03-12] MEDS: METHOCARBAMOL 500 MG TABLET PO PRN ×2 (12:05→21:11)
[2021-03-12] MEDS: PRENATAL VITAMINS W/ FOLIC ACID TABLET (FP) PO SCH (12:07)
[2021-03-12] MEDS: BUDESONIDE/FORMETEROL FUMARATE 80/4.5 mcg INHALER IH SCH ×2 (12:07→21:13)
[2021-03-12] MEDS: hydrOXYzine PAMOATE 50 MG CAPSULE (FP) PO PRN ×2 (15:24→21:12)
[2021-03-12] MEDS: AMOX TR/POT CLAV 875MG/125MG TABLETS (FP) PO SCH (17:05)
[2021-03-12] MEDS: MELATONIN 5 MG TABLETS PO SCH (21:11)
[2021-03-12] MEDS: traZODone HCL 50 MG TABLET (FP) PO SCH (21:11)
[2021-03-12] MEDS: THIAMINE HCL 100 MG TABLET (FP) PO SCH (21:11)
[2021-03-12] MEDS: MAG HYDROX/AL HYDROX/SIMETH 30 ML UNIT-DOSE CUP PO PRN (21:12)
[2021-03-12] MEDS: P-EPHED 60MG/TRIPROLIDI 2.5MG TABLET PO PRN (21:13)
[2021-03-13] MEDS: TOPIRAMATE 100 MG TABLET PO SCH (07:46)
[2021-03-13] MEDS: IBUPROFEN 400 MG TABLET (FP) PO PRN (08:50)
[2021-03-13] MEDS: METHOCARBAMOL 500 MG TABLET PO PRN ×3 (08:50→21:16)
[2021-03-13] MEDS: hydrOXYzine PAMOATE 50 MG CAPSULE (FP) PO PRN ×3 (08:50→21:17)
[2021-03-13] MEDS: AMOX TR/POT CLAV 875MG/125MG TABLETS (FP) PO SCH ×2 (08:52→17:17)
[2021-03-13] MEDS: P-EPHED 60MG/TRIPROLIDI 2.5MG TABLET PO PRN (08:55)
[2021-03-13] MEDS: predniSONE 10 MG TABLET (UD) PO SCH (10:39)
[2021-03-13] MEDS: PRENATAL VITAMINS W/ FOLIC ACID TABLET (FP) PO SCH (10:45)
[2021-03-13] MEDS: BUDESONIDE/FORMETEROL FUMARATE 80/4.5 mcg INHALER IH SCH ×2 (10:45→21:15)
[2021-03-13] MEDS: MAG HYDROX/AL HYDROX/SIMETH 30 ML UNIT-DOSE CUP PO PRN ×3 (12:34→22:58)
[2021-03-13] MEDS: FLUTICASONE PROP 0.05% 16 GM NASAL SPRAY NS PRN (21:15)
[2021-03-13] MEDS: traZODone HCL 50 MG TABLET (FP) PO SCH (21:16)
[2021-03-13] MEDS: MELATONIN 5 MG TABLETS PO SCH (21:16)
[2021-03-13] MEDS: THIAMINE HCL 100 MG TABLET (FP) PO SCH (21:52)
[2021-03-14] MEDS: METHOCARBAMOL 500 MG TABLET PO PRN ×3 (03:53→21:27)
[2021-03-14] MEDS: hydrOXYzine PAMOATE 50 MG CAPSULE (FP) PO PRN ×3 (03:53→21:27)
[2021-03-14] MEDS: TOPIRAMATE 100 MG TABLET PO SCH (06:55)
[2021-03-14] MEDS: AMOX TR/POT CLAV 875MG/125MG TABLETS (FP) PO SCH ×2 (07:06→17:28)
[2021-03-14] MEDS ORDERED: AMOX TR/POT CLAV 875MG/125MG TABLETS (FP) PO SCH ×2 (08:00)
[2021-03-14] MEDS: MAG HYDROX/AL HYDROX/SIMETH 30 ML UNIT-DOSE CUP PO PRN ×2 (08:51→18:44)
[2021-03-14] MEDS: PRENATAL VITAMINS W/ FOLIC ACID TABLET (FP) PO SCH (10:17)
[2021-03-14] MEDS: BUDESONIDE/FORMETEROL FUMARATE 80/4.5 mcg INHALER IH SCH ×2 (10:17→21:27)
[2021-03-14] MEDS: ASPIRIN COATED 81 MG TABLET.EC PO SCH (10:50)
[2021-03-14] MEDS: predniSONE 10 MG TABLET (UD) PO SCH (10:50)
[2021-03-14] MEDS: LOPERAMIDE HCL 2 MG CAPSULE PO PRN (18:46)
[2021-03-14] MEDS: MELATONIN 5 MG TABLETS PO SCH (21:27)
[2021-03-14] MEDS: traZODone HCL 50 MG TABLET (FP) PO SCH (21:27)
[2021-03-14] MEDS: THIAMINE HCL 100 MG TABLET (FP) PO SCH (21:28)
[2021-03-14] MEDS: P-EPHED 60MG/TRIPROLIDI 2.5MG TABLET PO PRN (21:29)
[2021-03-15] MEDS: TOPIRAMATE 100 MG TABLET PO SCH (08:07)
[2021-03-15] MEDS: ASPIRIN COATED 81 MG TABLET.EC PO SCH (09:47)
[2021-03-15] MEDS: BUDESONIDE/FORMETEROL FUMARATE 80/4.5 mcg INHALER IH SCH ×2 (09:47→21:23)
[2021-03-15] MEDS: PRENATAL VITAMINS W/ FOLIC ACID TABLET (FP) PO SCH (09:47)
[2021-03-15] MEDS: predniSONE 10 MG TABLET (UD) PO SCH (09:48)
[2021-03-15] MEDS: METHOCARBAMOL 500 MG TABLET PO PRN ×3 (09:48→21:21)
[2021-03-15] MEDS: hydrOXYzine PAMOATE 50 MG CAPSULE (FP) PO PRN ×3 (09:49→21:21)
[2021-03-15] MEDS: MELATONIN 5 MG TABLETS PO SCH (21:19)
[2021-03-15] MEDS: traZODone HCL 50 MG TABLET (FP) PO SCH (21:19)
[2021-03-15] MEDS: THIAMINE HCL 100 MG TABLET (FP) PO SCH (21:19)
[2021-03-15] MEDS: MAG HYDROX/AL HYDROX/SIMETH 30 ML UNIT-DOSE CUP PO PRN (21:21)
[2021-03-15] MEDS: P-EPHED 60MG/TRIPROLIDI 2.5MG TABLET PO PRN (21:21)
[2021-03-16] MEDS: TOPIRAMATE 100 MG TABLET PO SCH (06:49)
[2021-03-16] MEDS: hydrOXYzine PAMOATE 50 MG CAPSULE (FP) PO PRN ×2 (07:20→21:15)
[2021-03-16] MEDS: METHOCARBAMOL 500 MG TABLET PO PRN ×2 (07:20→21:13)
[2021-03-16] MEDS: PRENATAL VITAMINS W/ FOLIC ACID TABLET (FP) PO SCH (09:15)
[2021-03-16] MEDS: BUDESONIDE/FORMETEROL FUMARATE 80/4.5 mcg INHALER IH SCH ×2 (09:15→21:13)
[2021-03-16] MEDS: predniSONE 10 MG TABLET (UD) PO SCH (09:15)
[2021-03-16] MEDS: ASPIRIN COATED 81 MG TABLET.EC PO SCH (09:15)
[2021-03-16] MEDS: MAG HYDROX/AL HYDROX/SIMETH 30 ML UNIT-DOSE CUP PO PRN ×2 (13:03→21:13)
[2021-03-16] MEDS: MELATONIN 5 MG TABLETS PO SCH (21:13)
[2021-03-16] MEDS: THIAMINE HCL 100 MG TABLET (FP) PO SCH (21:13)
[2021-03-16] MEDS: traZODone HCL 50 MG TABLET (FP) PO SCH (21:13)
[2021-03-16] MEDS: P-EPHED 60MG/TRIPROLIDI 2.5MG TABLET PO PRN (21:14)
[2021-03-17] MEDS: TOPIRAMATE 100 MG TABLET PO SCH (06:21)
[2021-03-17 06:46] VITALS: TEMP 97.5
[2021-03-17] MEDS: METHOCARBAMOL 500 MG TABLET PO PRN ×3 (08:32→21:38)
[2021-03-17] MEDS: hydrOXYzine PAMOATE 50 MG CAPSULE (FP) PO PRN ×3 (08:33→21:38)
[2021-03-17] MEDS: MAG HYDROX/AL HYDROX/SIMETH 30 ML UNIT-DOSE CUP PO PRN ×2 (08:33→23:58)
[2021-03-17] MEDS: ASPIRIN COATED 81 MG TABLET.EC PO SCH (09:28)
[2021-03-17] MEDS: predniSONE 10 MG TABLET (UD) PO SCH (09:28)
[2021-03-17] MEDS: PRENATAL VITAMINS W/ FOLIC ACID TABLET (FP) PO SCH (09:29)
[2021-03-17] MEDS: BUDESONIDE/FORMETEROL FUMARATE 80/4.5 mcg INHALER IH SCH ×2 (09:29→21:40)
[2021-03-17] MEDS: P-EPHED 60MG/TRIPROLIDI 2.5MG TABLET PO PRN (09:29)
[2021-03-17] MEDS: IBUPROFEN 400 MG TABLET (FP) PO PRN (17:53)
[2021-03-17] MEDS ORDERED: PT OWN MED DRAWER 7, Y5N ONE (17:54)
[2021-03-17] MEDS: LOPERAMIDE HCL 2 MG CAPSULE PO PRN (19:56)
[2021-03-17] MEDS: traZODone HCL 50 MG TABLET (FP) PO SCH (21:38)
[2021-03-17] MEDS: MELATONIN 5 MG TABLETS PO SCH (21:39)
[2021-03-17] MEDS: THIAMINE HCL 100 MG TABLET (FP) PO SCH (21:39)
[2021-03-18] MEDS: TOPIRAMATE 100 MG TABLET PO SCH ×2 (06:34→07:18)
[2021-03-18] MEDS: IBUPROFEN 400 MG TABLET (FP) PO PRN (07:01)
[2021-03-18] MEDS: hydrOXYzine PAMOATE 50 MG CAPSULE (FP) PO PRN (07:01)
[2021-03-18 07:15] VITALS: BP 100/55; PULSE 65
[2021-03-18] MEDS: METHOCARBAMOL 500 MG TABLET PO PRN (08:31)
[2021-03-18] MEDS: ASPIRIN COATED 81 MG TABLET.EC PO SCH (09:16)
[2021-03-18] MEDS: PRENATAL VITAMINS W/ FOLIC ACID TABLET (FP) PO SCH (09:16)
[2021-03-18] MEDS: predniSONE 10 MG TABLET (UD) PO SCH (09:16)
[2021-03-18] MEDS ORDERED: PT OWN MED DRAWER 7, Y5N ONE (09:19)
== END 2021-03-18 09:35 | disposition home or self-care (01) | DRG 772 ==
LOC: YASAS 15:36 → Y3W 15:37
PROVIDERS: ADMIT Allergy & Immunology; ATTEND Allergy & Immunology
PROC: HZ42ZZZ Group Counseling for Substance Abuse Treatment, Cognitive-Behavioral (ICD-10-PCS; principal; 2021-03-04)
DX: F10.20 Alcohol dependence, uncomplicated (principal); F14.20 Cocaine dependence, uncomplicated; F17.210 Nicotine dependence, cigarettes, uncomplicated; F19.282 Other psychoactive substance dependence with psychoactive substance-induced sleep disorder; J43.9 Emphysema, unspecified; K21.9 Gastro-esophageal reflux disease without esophagitis; L93.0 Discoid lupus erythematosus; M19.90 Unspecified osteoarthritis, unspecified site; H91.92 Unspecified hearing loss, left ear; G56.01 Carpal tunnel syndrome, right upper limb; Z86.718 Personal history of other venous thrombosis and embolism; Z91.410 Personal history of adult physical and sexual abuse; Z88.1 Allergy status to other antibiotic agents
CPT/HCPCS: 36415; 84702